=== PATIENT | female | born 1995 | race Caucasian/White ===

== ENCOUNTER 2019-06-02 05:45 | Day surgery (SDC) | payer OTHER | END 2019-06-02 09:23 | disposition home or self-care (01) | LOC: AMB-ENDOS 05:45 | DX: D13.0 Benign neoplasm of esophagus (principal) ==

== ENCOUNTER 2021-05-16 09:00 | Outpatient (CLI) | payer OTHER | END 2021-05-16 09:20 | disposition home or self-care (01) | LOC: PPH VACUNA 09:00 | PROVIDERS: ATTEND Emergency Medicine Pediatric Emergency Medicine | DX: Z23 Encounter for immunization (principal) ==